=== PATIENT | male | born 1990 | race Caucasian/White ===

== ENCOUNTER 2023-01-02 12:53 | Emergency (ER) | payer OTHER, BC ==
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
[2023-01-02 13:27] LABS: BASOPHILS # (AUTO) 0.1 10^3/uL (0.0-0.1); BASOPHILS % (AUTO) 0 % (0-10); EOSINOPHILS # (AUTO) 0.1 10^3/uL (0.0-0.3); EOSINOPHILS % (AUTO) 1 % (0-10); HEMATOCRIT 43 % (40-54); HEMOGLOBIN 14.7 g/dL (13.3-17.7); LYMPHOCYTES # (AUTO) 1.6 10^3/uL (1.0-4.0); LYMPHOCYTES % (AUTO) 14 % (12-44); MEAN CORPUSCULAR HEMOGLOBIN 30 pg (25-34); MEAN CORPUSCULAR HGB CONC 34 g/dL (32-36); MEAN CORPUSCULAR VOLUME 89 fL (80-99); MEAN PLATELET VOLUME 10.1 fL (9.0-12.2); MONOCYTES # (AUTO) 1.2 10^3/uL (0.0-1.0); MONOCYTES % (AUTO) 11 % (0-12); NEUTROPHILS # (AUTO) 8.2 10^3/uL (1.8-7.8); NEUTROPHILS % (AUTO) 73 % (42-75); PLATELET COUNT 219 10^3/uL (130-400); WHITE BLOOD COUNT 11.2 10^3/uL (4.3-11.0)
[2023-01-02] MEDS ORDERED: NS IV 1000 ML 1,000 ML IV SCH (13:30)
[2023-01-02] MEDS ORDERED: ONDANSETRON INJECTION 4 MG/2 ML (SDV) IVP ONE (13:30)
[2023-01-02] MEDS ORDERED: fentaNYL INJECTION 100 MCG/2 ML VIAL IVP ONE (13:30)
[2023-01-02] MEDS ORDERED: IOHEXOL 350 MG/ML 100 ML (OMNIPAQUE 350) VIAL IV ONE (13:45)
[2023-01-02] MEDS ORDERED: HOLD METFORMIN - RECEIVED CONTRAST 20 ML VIAL IV SCH (13:45)
[2023-01-02] MEDS ORDERED: NS 100 ML (IVPB) BAG IV ONE (13:45)
[2023-01-02 13:46] LABS: CLARITY,URINE CLEAR; COLOR,URINE YELLOW; PH,URINE 6.5 (5-9)
[2023-01-02 13:47] LABS: BILIRUBIN,URINE 1+ (NEGATIVE); GLUCOSE, URINE (UA) NEGATIVE (NEGATIVE); KETONES,URINE NEGATIVE (NEGATIVE); LEUKOCYTE ESTERASE ,URINE NEGATIVE (NEGATIVE); NITRITE,URINE NEGATIVE (NEGATIVE); PROTEIN,URINE 2+ (NEGATIVE)
[2023-01-02 13:47] LABS: ALBUMIN 4.3 GM/DL (3.2-4.5); CALCIUM 9.2 MG/DL (8.5-10.1); CREATININE SERUM 1.03 MG/DL (0.60-1.30); POTASSIUM 3.9 MMOL/L (3.6-5.0); TOTAL PROTEIN 7.3 GM/DL (6.4-8.2)
[2023-01-02 13:48] LABS: BACTERIA,URINE TRACE /HPF; SQUAMOUS EPITHELIAL CELL,UR RARE /HPF; WBC,URINE 0-2 /HPF
[2023-01-02 13:49] LABS: AMORPHOUS SEDIMENT,UR FEW AMOR URATES /LPF
--- NOTE | 2023-01-02 14:17 | Diagnostic Imaging Report ---
PROCEDURE: CT abdomen and pelvis with contrast. TECHNIQUE: Multiple contiguous axial images were obtained through the abdomen and pelvis after administration of intravenous contrast. Auto Exposure Controls were utilized during the CT exam to meet ALARA standards for radiation dose reduction. All CT scans use one or more of the following dose optimizing techniques: automated exposure control, MA and/or KvP adjustment based on patient size and exam type or iterative reconstruction. INDICATION: Left-sided abdominal pain. COMPARISON: None. FINDINGS: Included views of the lung bases demonstrate no significant abnormality. The liver, spleen, adrenal glands, pancreas are normal. The kidneys are normal. The bowel is nondilated. There is fat stranding about the 4th portion of the duodenum and wall thickening. No bowel obstruction. No free air, loculated fluid collections, or ascites. The urinary bladder is normal. The left kidney demonstrates a 1 cm left renal cyst. The right kidney is normal. No nephrolithiasis or hydronephrosis. The osseous structures are normal. IMPRESSION: Wall thickening and fat stranding involving the 4th segment of the duodenum concerning for infectious or inflammatory duodenitis. Underlying neoplastic process cannot be excluded therefore follow-up imaging and gastroenterology consultation should be considered. Dictated by: Dictated on workstation # [id number]
[2023-01-02 15:00] VITALS: BP 131/81
== END 2023-01-02 15:00 | disposition home or self-care (01) ==
LOC: ER 13:01
DX: R10.31 Right lower quadrant pain (principal); R10.32 Left lower quadrant pain
CPT/HCPCS: 36415; 74177; 80053; 81000; 83690; 85025